=== PATIENT | female | born 1995 | race Caucasian/White ===

== ENCOUNTER → 2017-05-31 | Outpatient (CLI) | payer SELFPAY ==
--- NOTE | 2017-05-31 15:36 | RADIOLOGY REPORT (SQ) ---
EXAM DESCRIPTION: U/S [id number] TRNABD 1GES W/ODOP COMPLETED DATE/TIME: 05/31/2017 1:36 pm REASON FOR STUDY: ENCTR FOR SUPERVISION OF NORMAL 1ST 1ST TRIMESTER (Z34.01) Z34.01 ENCNT R FOR SUPRVSN OF NORMAL FIRST PREG, FIRST TRIMES COMPARISON: None. TECHNIQUE: Transabdominal static and realtime grayscale images acquired of the pelvis. Additional se lected spectral and color Doppler images recorded. All images stored on PACs. [facility]: No 0 LIMITATIONS: None. FINDINGS: FETUS: Living intrauterine . EGA: 13 weeks 0 days COREY: 12/06/2017 FHR: 173 beats per minute. The placenta is developing anteriorly, placenta is low lying, and either abuts or covers the internal cervical os. Repeat ultrasound sometime later in the 2nd trimester is recommended to evaluate for p lacenta previa SUBCHORIONIC BLEED: No SIZE OF BLEED: Not applicable. UTERUS: Uterus measures 13 x 9 x 8 cm in size. CERVICAL LENGTH: 3.6 cm Closed. RIGHT ADNEXA: Not visualized due to adnexal bowel gas LEFT ADNEXA: Normal ovary with normal vascular flow. Left ovary 2.4 x 2 x 1.6 cm in size No adnexal free fluid. No adnexal masses. FREE FLUID: None. OTHER: No other significant finding. IMPRESSION: LIVING INTRAUTERINE . EGA 13 weeks 0 days Low lying anterior placenta. Repeat ultrasound sometime later in the 2nd trimester is recommended to evaluate for placenta previa. Trimester of : First - 0 to 13 weeks. TECHNICAL DOCUMENTATION: JOB ID: [id number] [employer]- All Rights Reserved
== END ==
LOC: RAD 12:51
PROVIDERS: ATTEND Nurse Practitioner Women's Health
DX: Z34.01 Encounter for supervision of normal first pregnancy, first trimester (principal)
CPT/HCPCS: 76801

== ENCOUNTER → 2017-08-09 | Outpatient (CLI) | payer SELFPAY ==
--- NOTE | 2017-08-09 14:24 | RADIOLOGY REPORT (SQ) ---
EXAM DESCRIPTION: U/S OB 14+ TRNABD 1GES W/O DOP COMPLETED DATE/TIME: 08/09/2017 1:57 pm REASON FOR STUDY: ENCTR FOR SUPERVISION OF NORMAL 1ST , 2ND TRIMESTER (Z34.02) Z34.02 ENCN TR FOR SUPRVSN OF NORMAL FIRST PREG, SECOND TRIME COMPARISON: None. TECHNIQUE: Static and Dynamic grayscale imaging performed of gravid uterus using transabdominal appr oac. Additional selected color Doppler and spectral images recorded. All stored on PACS. LIMITATIONS: None. FINDINGS: EGA: 23 weeks 3 days COREY: 12/03/2017 EFW: 592 g grams PERCENTILE: 46th percentile AJ: Largest pocket 5.1 cm PLACENTA: Anterior, no abruption or previa. GRADE: I PRESENTATION: Breech orientation ANATOMY: HEART RATE: 157 beats per minute. FOUR CHAMBER HEART: Visualized. THREE VESSEL CORD: Yes. CORD INSERTION: Visualized. KIDNEYS AND BLADDER: Visualized. Appear normal. STOMACH: Visualized. Appears normal. SPINE: Normal as visualized. BRAIN AND LATERAL VENTRICLES: Visualized. Appear normal. OTHER: No other significant finding. MATERNAL ADNEXA: Maternal ovaries not visualized. CERVICAL LENGTH: 3.8 cm. Closed. OTHER: No other significant finding. IMPRESSION: LIVING INTRAUTERINE . ESTIMATED GESTATIONAL AGE 23 weeks 3 days NO VISUALIZED ANOMALIES. Trimester of : Second trimester - 13 weeks 1 day to 27 weeks 6 days. TECHNICAL DOCUMENTATION: JOB ID: [id number] [employer]- All Rights Reserved Reading location - IP/workstation name: [facility]
== END ==
LOC: RAD 12:53
PROVIDERS: ATTEND Nurse Practitioner Women's Health
DX: Z34.02 Encounter for supervision of normal first pregnancy, second trimester (principal)
CPT/HCPCS: 76805

== ENCOUNTER 2017-11-24 03:44 | Outpatient (CLI) | payer SELFPAY ==
[2017-11-24 04:09] LABS: APPEARANCE,URINE CLOUDY; BILIRUBIN,URINE NEGATIVE (NEGATIVE); COLOR,URINE YELLOW; GLUCOSE, URINE NEGATIVE (NEGATIVE); KETONES,URINE NEGATIVE (NEGATIVE); LEUKOCYTE ESTERASE,URINE NEGATIVE (NEGATIVE); NITRITE,URINE NEGATIVE (NEGATIVE); PROTEIN,URINE NEGATIVE (NEGATIVE); URINE SPECIFIC GRAVITY 1.008; UROBILINOGEN,URINE NEGATIVE mg/dL (<2.0)
[2017-11-24 04:24] LABS: URINE AMPHETAMINES SCREEN NEGATIVE; URINE BARBITURATES SCREEN NEGATIVE; URINE BENZODIAZEPINES SCREEN NEGATIVE; URINE COCAINE SCREEN NEGATIVE; URINE MARIJUANA (THC) SCREEN NEGATIVE; URINE METHADONE SCREEN NEGATIVE; URINE PHENCYCLIDINE SCREEN NEGATIVE
== END 2017-11-24 07:06 | disposition home or self-care (01) ==
LOC: LC 03:44
PROVIDERS: ATTEND Student in an Organized Health Care Education/Training Program
PROC: 4A1HXCZ Monitoring of Products of Conception, Cardiac Rate, External Approach (ICD-10-PCS; principal; 2017-11-24)
DX: O47.1 False labor at or after 37 completed weeks of gestation (principal); Z3A.38 38 weeks gestation of pregnancy
CPT/HCPCS: 59025; 80307; 81005

== ENCOUNTER 2017-11-24 11:47 | Outpatient (CLI) | payer SELFPAY ==
--- NOTE | 2017-11-24 11:54 | Non Stress Test Report ---
Non Stress Test Datetime Report Generated by CPN: 11/24/2017 11:53 DEMOGRAPHIC EGA NST: 38.2 INDICATION Indication for Study: Ordered by Provider; Other Indication for Study (NST) Other: labor check MONITORING Monitor Explained: Monitor Explained; Test Explained; Patient Verbalized Understanding Time on Monitor: 11/24/2017 04:00 Time off Monitor: 11/24/2017 04:41 NST Duration: 41 NST INTERVENTIONS NST Interventions: PO Hydration; Other NST Interventions Other: popsicle Physician Notified NST: Butch BABY A: [id number] BABY A Movement : Present Contraction Frequency : 2.5-5 FHR Baseline : 150 Accelerations : 15X15 Decelerations : None Variability : Moderate 6-25bpm NST Review: Meets Criteria for Reactive NST NST Review and Verified By : Malachi Hale RN NST Results: Reactive NST REPORT Report Trigger: Send Report
[2017-11-24] MEDS ORDERED: HYDROXYZINE PAMOATE 50 MG CAPSULE ONE (12:14)
[2017-11-24] MEDS ORDERED: HYDROXYZINE PAMOATE 50 MG CAPSULE PO ONE (12:19)
[2017-11-24] MEDS ORDERED: MORPHINE SULFATE 10 MG/ML INJ ONE (14:56)
[2017-11-24] MEDS ORDERED: PROMETHAZINE HCL INJ 25 MG/1 ML VIAL ONE (14:56)
--- NOTE | 2017-11-24 15:16 | Non Stress Test Report ---
Non Stress Test Datetime Report Generated by CPN: 11/24/2017 15:16 DEMOGRAPHIC EGA NST: 38.2 INDICATION Indication for Study: Other Indication for Study (NST) Other: labor check MONITORING Monitor Explained: Monitor Explained; Test Explained; Patient Verbalized Understanding Time on Monitor: 11/24/2017 12:00 Time off Monitor: 11/24/2017 15:00 NST Duration: 180 NST INTERVENTIONS NST Interventions: PO Hydration; Reposition Patient Physician Notified NST: K Mcmahon CNM BABY A Movement : Present Contraction Frequency : 2-3 FHR Baseline : 150 Accelerations : 15X15 Decelerations : None Variability : Moderate 6-25bpm NST Review: Meets Criteria for Reactive NST NST Review and Verified By : Shar Bellavancjosue RNC NST Results: Reactive NST REPORT Report Trigger: Send Report
[2017-11-24] MEDS ORDERED: MORPHINE SULFATE 10 MG/ML INJ IM ONE (15:24)
[2017-11-24] MEDS ORDERED: PROMETHAZINE HCL INJ 50 MG/1 ML VIAL IM PRN (15:28)
== END 2017-11-24 15:00 | disposition home or self-care (01) ==
LOC: LC 11:47
PROVIDERS: ATTEND Obstetrics & Gynecology Gynecology
PROC: 4A1HXCZ Monitoring of Products of Conception, Cardiac Rate, External Approach (ICD-10-PCS; principal; 2017-11-24)
DX: O47.1 False labor at or after 37 completed weeks of gestation (principal); Z3A.38 38 weeks gestation of pregnancy
CPT/HCPCS: 59025; J2270; J2550

== ENCOUNTER 2017-11-24 22:53 | Inpatient (IN) | payer SELFPAY ==
[2017-11-25] MEDS ORDERED: ACETAMINOPHEN 325 MG TABLET ONE (00:24)
[2017-11-25] MEDS ORDERED: ACETAMINOPHEN 325 MG TABLET PO ONE (00:24)
[2017-11-25] MEDS ORDERED: OXYTOCIN/NORMAL SALINE 20 UNIT/1,000 ML RTUINJ ONE (00:32)
[2017-11-25] MEDS ORDERED: MISOPROSTOL 0.2 MG TABLET ONE (00:32)
[2017-11-25] MEDS ORDERED: LIDOCAINE 1% INJ-PF (10 MG/ML) 30 ML SDV ONE (00:32)
[2017-11-25 00:38] LABS: ABSOLUTE BASOPHILS # (AUTO) 0.1 10^3/uL (0.0-0.2); ABSOLUTE LYMPHOCYTES (AUTO) 2.4 10^3/uL (0.5-4.7); ABSOLUTE MONOCYTES (AUTO) 0.9 10^3/uL (0.1-1.4); ABSOLUTE NEUT (AUTO) 10.8 10^3/uL (1.7-8.2); EOSINOPHILS % (AUTO) 0.3 % (0-6); HEMATOCRIT 35.1 % (36.0-47.0); HEMOGLOBIN 12.2 g/dL (12.0-15.5); LYMPHOCYTES % (AUTO) 16.5 % (13-45); MEAN CORPUSCULAR HEMOGLOBIN 31.8 pg (27.0-33.4); MEAN CORPUSCULAR HGB CONC 34.7 g/dL (32.0-36.0); MEAN CORPUSCULAR VOLUME 92 fl (80-97); MONOCYTES % (AUTO) 6.5 % (3-13); PLATELET COUNT 244 10^3/uL (150-450); RED BLOOD COUNT 3.82 10^6/uL (3.72-5.28); RED CELL DISTRIBUTION WIDTH 13.4 % (11.5-14.0); SEGMENTED NEUTROPHILS % (AUTO) 75.7 % (42-78); TOTAL CELLS COUNTED % (AUTO) 100 %; WHITE BLOOD COUNT 14.3 10^3/uL (4.0-10.5)
[2017-11-25] MEDS: RINGERS SOLUTION,LACTATED 1,000 ML IV PRN ×4 (00:39→06:55)
[2017-11-25] MEDS ORDERED: EPHEDRINE SULFATE INJ 50 MG/1 ML AMPULE ONE (02:06)
[2017-11-25] MEDS ORDERED: FENTANYL/BUPIVACAINE/NS/PF 300 MCG/150 ML RTUINJ EPI ONE (02:06)
[2017-11-25] MEDS ORDERED: BUPIVACAINE HCL 0.25 % INJ/PF (2.5 MG/1 ML) 30 ML VIAL ONE (02:06)
[2017-11-25] MEDS ORDERED: ONDANSETRON HCL INJ/PF 4 MG/2 ML SDV ONE (02:11)
[2017-11-25] MEDS ORDERED: ONDANSETRON HCL INJ/PF 4 MG/2 ML SDV IV ONE (02:14)
[2017-11-25] MEDS ORDERED: OXYTOCIN/NORMAL SALINE 20 UNIT/1,000 ML RTUINJ IV PRN ×3 (06:25→11:00)
[2017-11-25] MEDS ORDERED: LIDOCAINE 1% INJ-PF (10 MG/ML) 30 ML SDV INJ PRN (07:55)
[2017-11-25] MEDS ORDERED: MISOPROSTOL 0.2 MG TABLET PR PRN (07:55)
--- NOTE | 2017-11-25 08:43 | Admission Physical ---
Datetime Report Generated by CPN: 11/25/2017 08:43 CURRENT ADMISSION Chief Complaint: Uterine Contractions; Suspected Ruptured Membranes Indication for Induction: PROM Admit Impression : Term, Intrauterine Admit Plan: Admit to Unit; Initiate Labor Protocol; Initiate Labor Augmentation Protocol Admit Plan- Other: gbs negative. augmentation pitocin anticipate ALLERGIES Medication Allergies: No Medication Allergies: No Known Allergies (11/25/2017) Latex: No Latex Allergies OBSTETRICAL HISTORY EDC: 12/06/2017 00:00 : 1 Para: 0 Term: 0 : 0 SAB: 0 IAB: 0 Ectopic: 0 Livin Cesareans: 0 VBACs: 0 Multiple Births: 0 Gestational Diabetes: No Rh Sensitization: No Incompetent Cervix: No BRITTANY: No Infertility: No ART Treatment: No Uterine Anomaly: No IUGR: No Hx Previous C/S: No Macrosomia: No Hx Loss/Stillborn: No PIH: No Hx : No Placenta Previa/Abruption: No Depression/PP Depression: No PTL/PROM: No Post Hemorrhage: No Current Procedures: Ultrasound Obstetrical History Comments: G1- current SEE RECORDS Alcohol: No Marijuana : No Cocaine: No Other Illicit Drugs: No Cigarettes: Never Smoker. 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: No Heart Disease: No Hosp/Surgery: No Autoimmune Disorder: No Anesthetic Complications: No Kidney Disease: No Abnormal Pap Smear: No Neuro/Epilepsy: No Psychiatric Disorders: No Other Medical Diseases: No Hepatitis/Liver Disease: No Significant Family History: No Varicosities/Phlebitis: No Trauma/Violence : No Thyroid Dysfunction: No INFECTIOUS HISTORY Gonorrhea: No Genital Herpes: No Chlamydia: No Tuberculosis: No Syphilis: No Hepatitis: No HIV/AIDS Exposure: No Rash or Viral Illness: No HPV: No PHYSICAL EXAM General: Normal HEENT: Normal Neurologic: Normal Thyroid: Normal Heart: Normal Lungs: Normal Breast: Normal Back: Normal Abdomen: Normal Genitourinary Exam: Normal Extremities: Normal DTRs: Normal Pelvic Type: Adequate Vital Signs: Reviewed VAGINAL EXAM Dilatation: 9 Effacement: 100 Station: 2 Contraction Comments: every 3 MEMBRANES Pooling: Positive Membranes: Ruptured FETUS A EGA: 38.3 Monitoring: External US FHR- Baseline: 140 Variability: Moderate 6-25bpm Accelerations: 15X15 Decelerations: Early FHR Category: Category I PLANS FOR LABOR AND DELIVERY Labor and Delivery: None Pain Management: None Feeding Preference: Breast Benefit of Breast Feed Discussed: Yes Circumcision: No INFORMED CONSENT Signature: with User ID: [email or web address]
--- NOTE | 2017-11-25 10:54 | L&D Progress Notes ---
PROGRESS NOTES Datetime Report Generated by CPN: 11/25/2017 10:54 PROGRESS NOTE Impression: Normal Progression of Labor Informed Consent Obtained: Vaginal Delivery Comment: pushing - did well shoulder dystocia, [facility] and suprapubic pressure on left shoulder - one push. VAGINAL EXAM Dilatation: 9 Effacement: 100 Station: 2 Contractions: every 3 MEMBRANES Pooling: Positive Membranes: Ruptured FETUS A : 38.3 SIGNATURE SIGNATURE: [id number] SIGNATURE: ,[id number];,[id number] SIGNATURE: ,[id number] SIGNATURE: ,[id number] Signature: with User ID: [email or web address]
[2017-11-25] MEDS ORDERED: PROMETHAZINE HCL 25 MG TABLET PO PRN (11:00)
[2017-11-25] MEDS ORDERED: DIBUCAINE 1% OINTMENT 28 GM TP PRN (11:00)
[2017-11-25] MEDS ORDERED: HYDROCODONE/ACETAMINOPHEN 5-325 MG TABLET PO PRN (11:00)
[2017-11-25] MEDS ORDERED: ACETAMINOPHEN 650 MG SUPP.RECT PR PRN (11:00)
[2017-11-25] MEDS ORDERED: PROMETHAZINE HCL 25 MG SUPP.RECT PR PRN (11:00)
[2017-11-25] MEDS ORDERED: PSEUDOEPHEDRINE HCL 30 MG TABLET PO PRN (11:00)
[2017-11-25] MEDS ORDERED: ZOLPIDEM TARTRATE 5 MG TABLET PO PRN (11:00)
[2017-11-25] MEDS ORDERED: BENZOCAINE/MENTHOL AEROSOL SPRAY 56 ML TOP PRN (11:00)
[2017-11-25] MEDS ORDERED: GLYCERIN/WITCH HAZEL LEAF 1 EACH MED..PAD TP PRN (11:00)
[2017-11-25] MEDS ORDERED: NA PHOS,M-B/NA PHOS,DI-BA (ADULT) 133 ML ENEMA PR PRN (11:00)
[2017-11-25] MEDS ORDERED: ACETAMINOPHEN WITH CODEINE #3 TABLET PO PRN ×2 (11:00)
[2017-11-25] MEDS ORDERED: MEASLES,MUMPS&RUBELLA VACC/PF 0.5 ML VIAL SUBCUT PRN (11:00)
[2017-11-25] MEDS ORDERED: PROMETHAZINE HCL INJ 25 MG/1 ML VIAL IV PRN (11:00)
[2017-11-25] MEDS ORDERED: DIPH/PERTUSS(ACELL)/TETANUS VAC/PF 0.5 ML SYR (>=10YO) IM PRN (11:00)
[2017-11-25] MEDS ORDERED: DIPHENHYDRAMINE HCL 25 MG CAPSULE PO PRN (11:00)
[2017-11-25] MEDS ORDERED: MAGNESIUM HYDROXIDE SUSP 30 ML UDCUP PO PRN (11:00)
--- NOTE | 2017-11-25 11:06 | PDOC DELIVERY SUMMARY ---
Delivery Summary - Maternal Hx : I Hx Para: 0 Hx # Term Pregnancies: 1 Hx # Pregnancies: 0 Hx Total # of Abortions (Sponateous & Elective): 0 Number of Living Children: 0 COREY: 12/06/17 Gestational Age: 38.3 Risk Factors: Other - NONE Ruptured Membranes: SROM Time of Rupture: 07:59 Fluids: Clear Fluid Description: NORMAL APPEARING - Delivery Labor: Augmentation Presentation: Vertex Heart Rate Monitoring: Externally Uterine Contraction Monitoring: External Pattern: Other: Document in Pattern Other - NORMAL. OCCASIONAL EARLY/VARIABLE DECELERATIONS, OVERALL REASSURING Support Person Present: Yes Location: LD Placenta: Within Normal Limits Placenta Description: NORMAL 3 VESSEL CORD Number of Vessels (Cord): 3 Delivery of Placenta Date: 11/25/17 Delivery of Placenta Time: 10:49 Estimated Blood Loss: 200 ML Delivery Quantitative Blood Loss (QBL): 200 - Medications Type of Anesthesia:: Epidural - Intrapartum Medications Intrapartum Medications: SEE NURSING NOTE - Delivery Medications Delivery Meds: Other-Document - PITOCIN - Assess and Care Male Delivery of Date: 11/25/17 Delivery of Infant Time: 10:42 at 1 minute: 8 at 5 minutes: 9 Skin to Skin: Yes Skin to Skin (Mins): 1 - SEE NURSING NOTES Condition: STABLE Delivery Weight: 0 - WEIGHT PENDING AT THIS TIME - SEE NURSERY NOTES Delivery Length: 0 in - LENGTH PENDING AT THIS TIME SEE NURSERY NOTES
[2017-11-25 11:07] LABS: ARTERIAL BLOOD BASE EXCESS -0.9 mmol/L; ARTERIAL BLOOD H2CO3 1.97 mmol/L (1.05-1.35); ARTERIAL BLOOD HCO3 28.2 mmol/L (20-26); ARTERIAL BLOOD PCO2 65.6 mmHg (35-45); ARTERIAL BLOOD PH 7.25 (7.35-7.45); ARTERIAL BLOOD TOTAL CO2 30.2 mmol/L (21-25)
[2017-11-25] MEDS ORDERED: IBUPROFEN 800 MG TABLET ONE (11:10)
[2017-11-25 11:36] LABS: ARTERIAL BLOOD PO2 10.9 mmHg (80-100)
[2017-11-25] MEDS: DOCUSATE SODIUM 100 MG CAPSULE PO SCH (17:08)
[2017-11-25] MEDS: FERROUS SULFATE 325 MG TABLET PO SCH (17:08)
[2017-11-25] MEDS: IBUPROFEN 800 MG TABLET PO SCH ×2 (17:08→21:32)
[2017-11-25] MEDS: FAMOTIDINE 20 MG TABLET PO SCH (21:31)
[2017-11-26] MEDS: IBUPROFEN 800 MG TABLET PO SCH ×3 (06:23→21:06)
[2017-11-26 08:05] LABS: HEMATOCRIT 28.6 % (36.0-47.0); MEAN CORPUSCULAR HGB CONC 34.5 g/dL (32.0-36.0); MEAN CORPUSCULAR VOLUME 93 fl (80-97); PLATELET COUNT 194 10^3/uL (150-450); RED BLOOD COUNT 3.09 10^6/uL (3.72-5.28); WHITE BLOOD COUNT 11.4 10^3/uL (4.0-10.5)
[2017-11-26 08:06] LABS: HEMOGLOBIN 9.9 g/dL (12.0-15.5)
[2017-11-26] MEDS: FERROUS SULFATE 325 MG TABLET PO SCH ×2 (10:12→18:31)
[2017-11-26] MEDS: PRENATAL VITAMIN W DHA CAPSULE PO SCH (10:12)
[2017-11-26] MEDS: FAMOTIDINE 20 MG TABLET PO SCH ×2 (10:12→21:05)
[2017-11-26] MEDS: DOCUSATE SODIUM 100 MG CAPSULE PO SCH ×2 (10:12→18:31)
[2017-11-26] MEDS: SENNOSIDES/DOCUSATE 8.6-50 MG 1 EACH TABLET PO SCH (10:12)
[2017-11-26] MEDS: DHA PO SCH (10:14)
[2017-11-26] MEDS: FOLIC PO SCH (10:14)
[2017-11-26] MEDS: PRENATAL PO SCH (10:14)
[2017-11-26] MEDS: [UNRECOGNIZED DRUG - OTHER] PO SCH (10:14)
[2017-11-26] MEDS: IRON FUM PO SCH (10:14)
[2017-11-27] MEDS: IBUPROFEN 800 MG TABLET PO SCH (06:01)
--- NOTE | 2017-11-27 09:43 | PDOC PROGRESS REPORT ---
Subjective-OB Progress Note for:: 11/27/17 Subjective: Doing well,OOB in halls and nursery, Physical Exam (OB) Vital Signs: Temp Pulse Resp BP Pulse Ox 97.8 F 69 18 129/72 H 99 11/27/17 07:41 11/27/17 07:41 11/27/17 07:41 11/27/17 07:41 11/27/17 07:41 Intake & Output 11/26/17 11/27/17 11/28/17 06:59 06:59 06:59 Intake Total 400 1000 Balance 400 1000 - PIH/Pre-Eclampsia DTR's: 1 + Clonus: Negative Headache: Absent Epigastric Pain: No Visual Changes: No - Lochia Lochia Amount: Small 10-25 ml Lochia Color: Rubra/Red - Abdomen Description: Soft, Round Hernia Present: No Fundal Description: Firm, Midline Fundal Height: u/u - u/2 Objective-Diagnostic Laboratory: 11/26/17 07:39 Assessment and Plan(PN) - Assessment and Plan (1) Normal vaginal delivery Is this a current diagnosis for this admission?: Yes - Time Spent with Patient Time with patient: Less than 15 minutes Medications reviewed and adjusted accordingly: Yes - Disposition Anticipated Discharge: Home Within: within 24 hours
--- NOTE | 2017-11-27 09:47 | PDOC DISCHARGE SUMMARY ---
Final Diagnosis Discharge Date: 11/27/17 - Final Diagnosis (1) Normal vaginal delivery Is this a current diagnosis for this admission?: Yes Discharge Data - Discharge Medication Home Medications: 95/Iron Fum/Folic/Dha [ + Dha Combo Pack] 1 each PO DAILY 11/24 Vit/Dha [ Multi + Dha Capsule] 1 cap PO DAILY capsule - Diagnosis Test Laboratory: Temp Pulse Resp BP Pulse Ox 97.8 F 69 18 129/72 H 99 11/27/17 07:41 11/27/17 07:41 11/27/17 07:41 11/27/17 07:41 11/27/17 07:41 11/25/17 11/26/17 00:27 07:39 RBC 3.82 3.09 L Hgb 12.2 9.9 L D Hct 35.1 L 28.6 L - Discharge information/Instructions Discharge Activity: Activity As Tolerated, No Lifting Over 10 Pounds, No Lifting /Push/Pulling, Pelvic Rest Discharge Diet: As Tolerated, Regular Disposition: HOME, SELF-CARE Follow up with: [facility] in: 4, Weeks
--- NOTE | 2017-11-27 09:49 | PDOC DISCHARGE SUMMARY ---
Final Diagnosis Discharge Date: 11/27/17 - Final Diagnosis (1) Normal vaginal delivery Is this a current diagnosis for this admission?: Yes Discharge Data - Discharge Medication Home Medications: 95/Iron Fum/Folic/Dha [ + Dha Combo Pack] 1 each PO DAILY 11/24 Vit/Dha [ Multi + Dha Capsule] 1 cap PO DAILY capsule Gestational Age: 38.3 Reason(s) for Admission: Onset of Labor, PROM Admission Note: augmentation Procedures: NST, Ultrasound Intrapartum Procedure(s): Spontaneous Vaginal Delivery - Data Baby 1 Male at 1 minute: 8 at 5 minutes: 9 Home with Mother: No Complications: Yes - dusky spell yesterday - Diagnosis Test Laboratory: Temp Pulse Resp BP Pulse Ox 97.8 F 69 18 129/72 H 99 11/27/17 07:41 11/27/17 07:41 11/27/17 07:41 11/27/17 07:41 11/27/17 07:41 11/25/17 11/26/17 00:27 07:39 RBC 3.82 3.09 L Hgb 12.2 9.9 L D Hct 35.1 L 28.6 L - Discharge information/Instructions Discharge Activity: Activity As Tolerated, No Lifting Over 10 Pounds, No Lifting /Push/Pulling, Pelvic Rest Discharge Diet: As Tolerated, Regular Disposition: HOME, SELF-CARE Follow up with: [facility] in: 4, Weeks
[2017-11-27] MEDS: [UNRECOGNIZED DRUG - OTHER] PO SCH (11:02)
[2017-11-27] MEDS: FERROUS SULFATE 325 MG TABLET PO SCH (11:02)
[2017-11-27] MEDS: IRON FUM PO SCH (11:02)
[2017-11-27] MEDS: DOCUSATE SODIUM 100 MG CAPSULE PO SCH (11:02)
[2017-11-27] MEDS: DHA PO SCH (11:02)
[2017-11-27] MEDS: SENNOSIDES/DOCUSATE 8.6-50 MG 1 EACH TABLET PO SCH (11:02)
[2017-11-27] MEDS: PRENATAL PO SCH (11:02)
[2017-11-27] MEDS: FOLIC PO SCH (11:02)
[2017-11-27] MEDS: PRENATAL VITAMIN W DHA CAPSULE PO SCH (11:02)
[2017-11-27] MEDS: FAMOTIDINE 20 MG TABLET PO SCH (11:02)
[2017-11-27 12:20] VITALS: BP 134/69
== END 2017-11-27 13:55 | disposition home or self-care (01) | DRG 775 ==
LOC: LC 22:53 → LR 11-25 00:22 → 2S 11-25 12:58
PROVIDERS: ADMIT Obstetrics & Gynecology Gynecology; ATTEND Obstetrics & Gynecology
PROC: 10E0XZZ Delivery of Products of Conception, External Approach (ICD-10-PCS; principal; 2017-11-25)
DX: O76 Abnormality in fetal heart rate and rhythm complicating labor and delivery (principal); Z3A.38 38 weeks gestation of pregnancy; Z37.0 Single live birth
CPT/HCPCS: 36415; 82803; 85025; 85027; 86592; 86850; 86900; 86901; J2405; J2590; J3010; J3490